=== PATIENT | male | born 1995 | race Caucasian/White ===

== ENCOUNTER 2018-11-15 05:17 | Emergency (ER) | payer OTHER ==
[~2018-11-15] VITALS: Ht 175.2 cm; Wt 72.1 kg
[~2018-11-15 05:17] MED LIST: ACETAMINOHPEN/C1 TAB PO; AUGMENTIN 400100 ML PO; BACTRIM DS 8001 TA1 PO; CIPRO500 MG PO; CLARITIN10 MG PO; CLARITIN5 MG/5 ML PO; FLEXERIL5 MG PO; KEFLEX500 MG PO; KENALOG0.1% TP; MOTRIN400 MG PO; MOTRIN800 MG PO; NKHM; SEPTRA DS 800 M1 TAB PO; VICODIN; VISTARIL25 MG PO; Zofran4 MG PO
[2018-11-15 05:33] VITALS: BP 140/88
[2018-11-15] MEDS ORDERED: TESSALON PERLE100 M1 PO (06:16)
== END 2018-11-15 06:51 | disposition home or self-care (01) ==
LOC: ED 05:17
DX: J45.909 Unspecified asthma, uncomplicated (principal); Z91.030 Bee allergy status

== ENCOUNTER 2020-06-17 07:39 | Emergency (ER) | payer SELFPAY ==
[~2020-06-17] VITALS: Ht 177.8 cm; Wt 75.3 kg
[~2020-06-17 07:39] MED LIST changes: +TESSALON PERLE100 M1 PO
[2020-06-17 07:46] VITALS: BP 148/69
[2020-06-17] MEDS ORDERED: TYLENOL325 M1 PO (09:35)
[2020-06-17] MEDS ORDERED: NAPROXEN250 MG PO (09:35)
== END 2020-06-17 09:45 | disposition home or self-care (01) ==
LOC: ED 07:39
DX: S49.91XA Unspecified injury of right shoulder and upper arm, initial encounter (principal); S69.91XA Unspecified injury of right wrist, hand and finger(s), initial encounter; Z91.030 Bee allergy status; Z79.899 Other long term (current) drug therapy; W10.8XXA Fall (on) (from) other stairs and steps, initial encounter; Y93.89 Activity, other specified; Y92.89 Other specified places as the place of occurrence of the external cause; Y99.8 Other external cause status

== ENCOUNTER 2020-07-03 09:30 | Emergency (ER) | payer SELFPAY ==
[~2020-07-03] VITALS: Ht 177.8 cm; Wt 74.8 kg
[~2020-07-03 09:30] MED LIST changes: +NAPROXEN250 MG PO; +TYLENOL325 M1 PO
[2020-07-03 09:34] VITALS: BP 124/76
== END 2020-07-03 10:11 | disposition home or self-care (01) ==
LOC: ED 09:30
DX: S69.91XA Unspecified injury of right wrist, hand and finger(s), initial encounter (principal); Z91.030 Bee allergy status; Z79.899 Other long term (current) drug therapy; X58.XXXA Exposure to other specified factors, initial encounter; Y93.89 Activity, other specified; Y92.89 Other specified places as the place of occurrence of the external cause; Y99.8 Other external cause status